=== PATIENT | female | born 1935 | race African-American/Black ===

== ENCOUNTER 2023-08-07 07:30 | Emergency (ER) | payer OTHER ==
[~2023-08-07] VITALS: Ht 162.6 cm; Wt 77.0 kg
[2023-08-07 07:33] VITALS: O2SAT 98
[2023-08-07] MEDS ORDERED: OXYCODONE HCL/ACETAMINOPHEN 5/325MG TABLET PO ONE (07:45)
[2023-08-07] MEDS ORDERED: OXYCODONE HCL/ACETAMINOPHEN 5/325MG TABLET PO NR (10:30)
[2023-08-07] MEDS ORDERED: TOPUD PO (11:52)
[2023-08-07 12:13] LABS: HEMOGLOBIN. 12.9 g/dL (12.0-16.0); MEAN CORPUSCULAR HEMOGLOBIN 26.6 pg (28.0-32.0); MEAN CORPUSCULAR HGB CONC 32.3 g/dL (31.0-37.0); MEAN CORPUSCULAR VOLUME 82.2 fL (81.0-99.0); MEAN PLATELET VOLUME 8.3 fl (7.4-10.4); PLATELET 196 x1000/uL (130-400); RED BLOOD CELL COUNT 4.87 mill/uL (4.2-5.4); RED CELL DISTRIBUTION WIDTH 15.3 % (11.6-14.6)
[2023-08-07 12:17] LABS: DIFFERENTIAL COMMENT 1
[2023-08-07 12:52] LABS: ALANINE AMINOTRANSFERASE 13 IU/L (10-49); ALBUMIN 4.3 g/dL (3.2-4.8); ASPARTATE AMINOTRANSFERASE 34 IU/L (<34); BILIRUBIN TOTAL 0.9 mg/dL (0.1-1.0); CALCIUM 9.7 mg/dL (8.7-10.4); CARBON DIOXIDE 23 mEq/L (21-32); CHLORIDE 107 mEq/L (98-107); CREATININE 1.1 mg/dL (0.6-1.0); GLUCOSE 100 mg/dL (70-105); POTASSIUM 4.5 mEq/L (3.5-5.1); SODIUM 140 mEq/L (136-145); UREA NITROGEN BLOOD 15 mg/dL (9-23)
[2023-08-07 15:09] VITALS: BP 113/49; PULSE 79; RESP 18; TEMP 97.7
[2023-08-07 15:18] LABS: ANISOCYTOSIS 1+; PLATELET ESTIMATE NORMAL
== END 2023-08-07 14:54 | disposition home or self-care (01) ==
LOC: ER 07:30 → CANBEDREQ 12:23 → ER 14:54
DX: S82.002A Unspecified fracture of left patella, initial encounter for closed fracture (principal); E11.9 Type 2 diabetes mellitus without complications; I10 Essential (primary) hypertension; V49.40XA Driver injured in collision with unspecified motor vehicles in traffic accident, initial encounter; Y93.89 Activity, other specified; Y92.89 Other specified places as the place of occurrence of the external cause; Y99.8 Other external cause status
CPT/HCPCS: 99284; 73700; 80053; 82962; 85025; 36415; 73030; 73560; L1830

== ENCOUNTER 2024-12-18 09:09 | Emergency (ER) | payer OTHER ==
[~2024-12-18] VITALS: Ht 162.6 cm; Wt 63.0 kg
[~2024-12-18 09:09] MED LIST: TOPUD PO
[2024-12-18 09:14] VITALS: O2SAT 99
[2024-12-18] MEDS: ONDANSETRON 4MG ODT PO ONE (10:32)
[2024-12-18 11:33] LABS: BASOPHILS % 0.4 % (0.0-2.0); EOSINOPHILS % 2.1 % (0.0-5.0); HEMATOCRIT. 36.8 % (36.0-48.0); HEMOGLOBIN. 11.9 g/dL (12.0-16.0); LYMPHOCYTES % 25.7 % (20.0-50.0); MEAN CORPUSCULAR HEMOGLOBIN 27.7 pg (28.0-32.0); MEAN CORPUSCULAR HGB CONC 32.3 g/dL (31.0-37.0); MEAN CORPUSCULAR VOLUME 85.8 fL (81.0-99.0); MONOCYTES % 7.9 % (2.0-8.0); NEUTROPHILS % 63.9 % (40.0-76.0); PLATELET 177 x1000/uL (130-400); RED BLOOD CELL COUNT 4.29 mill/uL (4.2-5.4); RED CELL DISTRIBUTION WIDTH 15.6 % (11.6-14.6); WHITE BLOOD COUNT 6.6 x1000/uL (4.5-11.0)
[2024-12-18 11:37] LABS: CHLORIDE 106 mEq/L (98-107); POTASSIUM 4.1 mEq/L (3.5-5.1); SODIUM 141 mEq/L (136-145)
[2024-12-18 11:38] LABS: CARBON DIOXIDE 26 mEq/L (21-32)
[2024-12-18 11:39] LABS: CALCIUM 9.7 mg/dL (8.7-10.4)
[2024-12-18 11:43] LABS: GLUCOSE 69 mg/dL (70-105); TROPONIN I HIGH SENSITIVITY 26 ng/L (3.0-34)
[2024-12-18 11:44] LABS: UREA NITROGEN BLOOD 22 mg/dL (9-23)
[2024-12-18 11:45] LABS: ALANINE AMINOTRANSFERASE 14 IU/L (10-49); ALBUMIN 4.4 g/dL (3.2-4.8); ASPARTATE AMINOTRANSFERASE 25 IU/L (<34); BILIRUBIN DIRECT 0.2 mg/dL (<=3.0)
[2024-12-18 11:46] LABS: BILIRUBIN TOTAL 0.6 mg/dL (0.1-1.0); PROTEIN TOTAL 7.6 g/dL (6.0-8.3)
[2024-12-18 11:50] LABS: PROTHROMBIN TIME 10.9 sec (9.6-11.0)
[2024-12-18] MEDS ORDERED: ONDA-239 PO (12:05)
[2024-12-18 12:28] VITALS: BP 169/88; PULSE 83; RESP 16; O2SAT 99
== END 2024-12-18 12:29 | disposition home or self-care (01) ==
LOC: ER 09:09
DX: M54.2 Cervicalgia (principal); E11.65 Type 2 diabetes mellitus with hyperglycemia; I10 Essential (primary) hypertension; M47.812 Spondylosis without myelopathy or radiculopathy, cervical region
CPT/HCPCS: 99284; 71045; 80076; 80048; 82962; 83690; 85025; 85610; 84484; 36415; 72040; 72100; Q0162